=== PATIENT | male | born 1940 | race Caucasian/White ===

== ENCOUNTER → 2016-08-09 | Outpatient (CLI) | payer MEDICARE, BC ==
--- NOTE | 2016-08-09 09:40 | CT ---
EXAMINATION TYPE: CT ankle RT wo con, CT foot RT wo con DATE OF EXAM: 08/09/2016 8:32 AM COMPARISON: NONE HISTORY: 76 year-old male evaluate Arthritis TECHNIQUE: Contiguous axial scanning of the right ankle and foot without IV contrast. Coronal and sag ittal reconstructions performed. 3-D reconstructions generated on a dedicated independent workstation . CT DLP: 297 Rt foot and ankle mGycm Automated exposure control for dose reduction was used. FINDINGS: Ankle: There is eccentric widening of the right tibiotalar joint with an interposed 4.7 mm loose body at the lateral margin of the talar dome. Additional tiny 4 mm loose body just posteriorly. There is joint space narrowing along the medial aspect of the tibiotalar joint with underlying subcho ndral sclerosis. Both anterior and posterior marginal spurring is present at the tibiotalar joint. There appears to be lateral sided extra-articular degenerative change of the hindfoot at the level of the calcaneal angle and lateral talus. There is irregularity of the cortical bone and prominent subc ortical cystic change involving both the talus and calcaneus here. No significant hindfoot valgus. There is subchondral cystic change on the calcaneal side of the anterior subtalar joint There is a 1.1 cm corticated bone fragment at the calcaneal attachment of the CFL suggesting remote a vulsion fracture. Bony spurring along the course of the peroneal tendon which can be seen with posterior tibial tendon dysfunction. Incidental type I assess for navicular. Right foot: There is dorsal plate and 2 screw fixation along the proximal aspect of the first metatarsal. The dis jhonatan fixation screw is intact. The proximal fixation screw is fractured, offset, and is seen extending into the inferior aspect of the first TMT joint. Degenerative joint space narrowing and subchondral cystic change seen at both navicular cuneiform suri nts, and scattered throughout the TMT joints especially the second and fourth TMT joints. There is slight offset along the medial margin of the second TMT joint, refer to series 23, images 27 and 28. Soft tissue thickening along the malleolar and inframalleolar peroneal tendons is noted. Mild degenerative changes at the first TMT joint. Incidental Diaz's toe. IMPRESSION: 1. TIBIOTALAR JOINT OSTEOARTHROSIS WITH PROMINENT ECCENTRIC WIDENING OF THE LATERAL JOINT SPACE. THI S APPEARS TO BE IN PART DUE TO AN INTERPOSED 5 MM LOOSE BODY. ADDITIONAL TINY 4 MM LOOSE BODY JUST PO STERIORLY. 2. OSTEOARTHRITIC CHANGES ALONG THE ANTERIOR SUBTALAR JOINT. ADDITIONAL EXTRA-ARTICULAR HINDFOOT DEGE NERATIVE CHANGE LATERALLY AT THE CALCANEAL ANGLE AND LATERAL TALUS. DEGENERATIVE CHANGES HERE ARE TYP ICALLY SEEN WITH LATERAL HINDFOOT IMPINGEMENT BUT THERE IS NO HINDFOOT VALGUS NOTED. 3. SCATTERED OSTEOARTHRITIC CHANGES AT THE TMT JOINTS. WE NOTE A FRACTURE OF THE PROXIMAL FIXATION SC REW AT THE FIRST METATARSAL. THE FRACTURED DISTAL ASPECT IS OFFSET AND ANGULATED WITH TIP PROJECTING INTO THE FIRST TMT JOINT. 4. THERE IS ADDITIONAL SLIGHT OFFSET ALONG THE MEDIAL MARGIN OF THE SECOND TMT JOINT. QUERY ANY PRIOR HISTORY OF A LISFRANC LIGAMENT INJURY. 5. PROMINENT SOFT TISSUE THICKENING ALONG THE MALLEOLAR AND INFRAMALLEOLAR PERONEAL TENDONS PROBABLY REPRESENTING TENOSYNOVITIS AND TENDINOPATHY. 6. SOME BONY CHANGES ALONG THE COURSE OF THE POSTERIOR TIBIAL TENDON CAN BE SEEN WITH PTT DYSFUNCTION . 7. OLD AVULSION FRACTURE AT THE CALCANEAL CFL ATTACHMENT.
== END | disposition home or self-care (01) ==
LOC: RADCTMAIN 07:22
PROVIDERS: ATTEND Orthopaedic Surgery Foot and Ankle Surgery
DX: M19.071 Primary osteoarthritis, right ankle and foot (principal); S92.311A Displaced fracture of first metatarsal bone, right foot, initial encounter for closed fracture; M24.071 Loose body in right ankle

== ENCOUNTER → 2016-11-28 | Outpatient (CLI) | payer MEDICARE, BC ==
--- NOTE | 2016-11-28 16:54 | XR ---
EXAMINATION TYPE: XR ribs RT DATE OF EXAM: 11/28/2016 COMPARISON: NONE HISTORY: Rib pain TECHNIQUE: 4 views FINDINGS: I see no pleural effusion or pneumothorax. Right lung is clear of infiltrate. I see no rib fracture. IMPRESSION: Negative right rib exam.
--- NOTE | 2016-11-28 16:56 | US ---
EXAMINATION TYPE: US abdomen complete DATE OF EXAM: 11/28/2016 COMPARISON: 2012 CLINICAL HISTORY: R10.10 UPPER ABD PAIN. Large body habitus pt ate at 800 NPO 8 hrs per order from prostate cancer EXAM MEASUREMENTS: Liver Length: 14.2 cm Gallbladder Wall: 0.1 cm CBD: 0.2 cm Spleen: 13.8 cm Right Kidney: 9.8 x 4.7 x 4.0 cm Left Kidney: 10.3 x 4.3 x 4.7 cm Pancreas: Obscured by bowel gas Liver: wnl Gallbladder: wnl Evidence for sonographic Torres's sign: No CBD: wnl Spleen: Spleen Length = < 13cm, enlarged Right Kidney: limited eval pt body habitus small cyst 0.8 x 0.8 x 0.9 cm Left Kidney: wnl limited eval Upper IVC: wnl Abd Aorta: wnl IMPRESSION: Negative complete abdominal sonogram. No gallstones or dilated ducts. No hydronephrosis. Small cyst is noted in the right kidney.
--- NOTE | 2016-11-28 16:57 | XR ---
EXAMINATION TYPE: XR chest 2V DATE OF EXAM: 11/28/2016 COMPARISON: 01/18/2013 HISTORY: TECHNIQUE: Frontal and lateral views of the chest are obtained. FINDINGS: There is no heart failure nor confluent pneumonic infiltrate. Costophrenic angles are swapnil r. There are no hilar masses. There is no sign of pleural effusion. Bony thorax is intact. There are pins in the right shoulder. IMPRESSION: No active cardiopulmonary disease. No pneumothorax. No change compared to old exam.
== END ==
LOC: RADUSWWP 15:58
PROVIDERS: ATTEND Family Medicine
DX: R10.10 Upper abdominal pain, unspecified (principal); S38.1XXA Crushing injury of abdomen, lower back, and pelvis, initial encounter
CPT/HCPCS: 71020; 76700

== ENCOUNTER → 2017-01-07 | Outpatient (CLI) | payer MEDICARE, BC | END | disposition home or self-care (01) | LOC: RADUSWWP 08:42 | PROVIDERS: ATTEND Family Medicine | DX: I73.9 Peripheral vascular disease, unspecified (principal) | CPT/HCPCS: 93923 ==

== ENCOUNTER → 2017-11-21 | Outpatient (CLI) | payer MEDICARE ==
--- NOTE | 2017-11-22 08:33 | ECHOF ---
Referral Reason:R01.1 Cardiac murmur MEASUREMENTS -------- HEIGHT: 170.2 cm WEIGHT: 93.0 kg BP: RVIDd: 3.0 cm (< 3.3) IVSd: 1.3 cm (0.6 - 1.1) LVIDd: 3.6 cm (3.9 - 5.3) LVPWd: 1.3 cm (0.6 - 1.1) IVSs: 1.6 cm LVIDs: 2.6 cm LVPWs: 1.6 cm LA Diam: 3.4 cm (2.7 - 3.8) Ao Diam: 3.9 cm (2.0 - 3.7) AV Cusp: 1.4 cm (1.5 - 2.6) LA Diam: 3.6 cm (2.7 - 3.8) MV EXCURSION: 13.189 mm (> 18.000) MV EF SLOPE: 43 mm/s (70 - 150) EPSS: 1.0 cm MV E Sahde: 0.50 m/s MV DecT: 299 ms MV A Shade: 1.02 m/s MV E/A Ratio: 0.49 AV maxP.65 mmHg AV meanP.38 mmHg AR PHT: 429 ms RAP: 5.00 mmHg RVSP: 24.35 mmHg FINDINGS -------- Sinus rhythm. This was a technically adequate study. The left ventricular size is normal. There is mild concentric left ventricular hypertrophy. Overa ll left ventricular systolic function is low-normal with, an EF between 50 - 55 %. The right ventricle is normal in size. The left atrial size is normal. The right atrial size is normal. There is mild aortic regurgitation. There is moderate aortic stenosis present. Peak/mean gradient across the Aortic Valve is 37.65mmHg / 22.38mmHg. Mild mitral annular calcification present. Mild mitral regurgitation is present. Mild tricuspid regurgitation present. There is mild pulmonary hypertension. The right ventricular systolic pressure, as measured by Doppler, is 24.35mmHg. There is no pulmonic regurgitation present. Aortic Root is dilated and measures 4.0cm. Ascending Aortic Root is dilated and measures 4.7cm. There is no pericardial effusion. CONCLUSIONS -------- 1. The left ventricular size is normal. 2. There is mild concentric left ventricular hypertrophy. 3. Overall left ventricular systolic function is low-normal with, an EF between 50 - 55 %. 4. The right ventricle is normal in size. 5. The left atrial size is normal. 6. The right atrial size is normal. 7. There is mild aortic regurgitation. 8. There is moderate aortic stenosis present. 9. Peak/mean gradient across the Aortic Valve is 37.65mmHg / 22.38mmHg. 10. Mild mitral annular calcification present. 11. Mild mitral regurgitation is present. 12. Mild tricuspid regurgitation present. 13. There is mild pulmonary hypertension. 14. The right ventricular systolic pressure, as measured by Doppler, is 24.35mmHg. 15. There is no pulmonic regurgitation present. 16. Aortic Root is dilated and measures 4.0cm. Ascending Aortic Root is dilated and measures 4.7cm. 17. There is no pericardial effusion. COAL DUMPING EQUIPMENT OPERATOR: Carrie Guzman RDCS
== END | disposition home or self-care (01) ==
LOC: RADECHMAIN 15:32
PROVIDERS: ATTEND Family Medicine
DX: I08.3 Combined rheumatic disorders of mitral, aortic and tricuspid valves (principal); I27.20 Pulmonary hypertension, unspecified; I77.810 Thoracic aortic ectasia
CPT/HCPCS: 93306

== ENCOUNTER → 2017-11-21 | Outpatient (CLI) | payer MEDICARE ==
--- NOTE | 2017-11-21 17:30 | US ---
EXAMINATION TYPE: US carotid duplex BILAT DATE OF EXAM: 11/21/2017 COMPARISON: NONE CLINICAL HISTORY: Carotid Bruit R01.1. Patient states routine to have it done. No HTN. No dizziness or memory loss. EXAM MEASUREMENTS: RIGHT: Peak Systolic Velocity (PSV) cm/sec ----- Right CCA: 73.5 ----- Right ICA: 90.3 ----- Right ECA: 109.7 ICA/CCA ratio: 1.2 RIGHT: End Diastole cm/sec ----- Right CCA: 16.4 ----- Right ICA: 24.1 ----- Right ECA: 0.0 LEFT: Peak Systolic Velocity (PSV) cm/sec ----- Left CCA: 60.7 ----- Left ICA: 73.5 ----- Left ECA: 114.5 ICA/CCA ratio: 1.2 LEFT: End Diastole cm/sec ----- Left CCA: 11.9 ----- Left ICA: 21.9 ----- Left ECA: 0.0 VERTEBRALS (direction of flow): Right Vertebral: Antegrade Left Vertebral: Antegrade Rhythm: Normal Bilateral wall thickening. No elevated velocities or significant stenosis. Plaque seen in left bulb . IMPRESSION: There is antegrade flow in the vertebral arteries. The images and measurements suggest l ess than 25% stenosis in both internal carotid arteries. Criteria for Assigning % of Stenosis / Diameter reduction (Estimation based on the indirect measurements of the internal carotid artery velocities (ICA PSV). 1. Normal (no stenosis)=ICA PSV < 125 cm/s: ratio < 2.0: ICA EDV<40 cm/s. 2. Less than 50% stenosis=ICA PSV < 125 cm/s: ratio < 2.0: ICA EDV<40 cm/s. 3. 50 to 69% stenosis=ICA PSV of 125 to 230 cm/s: ration 2.0 ? 4.0: ICA EDV 40-100 cm/s. 4. Greater than 70% stenosis to near occlusion= ICA PSV > 230 cm/s: ratio > 4.0: ICA EDV > 100 cm/s. 5. Near occlusion= ICA PSV velocities may be low or undetectable: variable ratio and ICA EDV. 6. Total occlusion=unable to detect flow.
== END | disposition home or self-care (01) ==
LOC: RADUSMAIN 15:38
PROVIDERS: ATTEND Internal Medicine Endocrinology, Diabetes & Metabolism
DX: R09.89 Other specified symptoms and signs involving the circulatory and respiratory systems (principal); R01.1 Cardiac murmur, unspecified
CPT/HCPCS: 93880

== ENCOUNTER → 2018-01-29 | Outpatient (CLI) | payer MEDICARE ==
[2018-01-29 15:27] LABS: HCT 39.8 % (39.0-53.0); HGB 12.7 gm/dL (13.0-17.5); MCH 28.4 pg (25.0-35.0); MCHC 31.8 g/dL (31.0-37.0); MCV 89.3 fL (80.0-100.0); Mean Platelet Volume 7.1; Platelet Count 261 k/uL (150-450); RBC 4.45 m/uL (4.30-5.90); RDW 14.9 % (11.5-15.5)
[2018-01-29 15:33] LABS: Calcium 9.7 mg/dL (8.4-10.2); Potassium 4.1 mmol/L (3.5-5.1); Total Bilirubin 1.2 mg/dL (0.2-1.3); Total Protein 6.3 g/dL (6.3-8.2)
[2018-01-29 15:49] LABS: T4, Free (Free Thyroxine) 1.16 ng/dL (0.78-2.19)
[2018-01-29 15:54] LABS: Lymphocytes # (M) 93.72 k/uL (1.0-4.8); Neutrophils # (M) 5.98 k/uL (1.3-7.7); Neutrophils % (M) 6 %; Nucleated Red Blood Cells 0 /100 WBC (0-0); Total Cells Counted 200
[2018-01-29 15:57] LABS: WBC 99.7 k/uL (3.8-10.6)
[2018-01-29 16:17] LABS: Erythrocyte Sedimentation Rate 2 mm/hr (0-15)
== END | disposition home or self-care (01) ==
LOC: LABWHC1 15:05
PROVIDERS: ATTEND Internal Medicine
DX: R06.00 Dyspnea, unspecified (principal)
CPT/HCPCS: 36415; 80053; 84439; 84443; 85025; 85379; 85652

== ENCOUNTER → 2018-05-11 | Outpatient (CLI) | payer MEDICARE ==
--- NOTE | 2018-05-11 08:44 | US ---
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 CLL, Hx enlarged spleen EXAM MEASUREMENTS: Liver Length: 16.6 cm Gallbladder Wall: 0.3 cm CHD: 0.5 cm Spleen: 19.3 cm Right Kidney: 11.0 x 4.9 x 5.1 cm Left Kidney: 11.3 x 4.7 x 5.2 cm Limited exam due to overlying bowel gas Pancreas: Body and tail obscured by overlying bowel gas. Appears echogenic in appearance Liver: wnl Gallbladder: Mobile echogenic nonshadowing foci seen Evidence for sonographic Torres's sign: neg CBD: Obscured by overlying bowel gas CHD: wnl Spleen: enlarged in size Right Kidney: wnl, limited visualization due to patient body habitus, previous cystic lesion not see n on today's exam Left Kidney: wnl Upper IVC: wnl Abd Aorta: Portions obscured by overlying bowel gas. Parts seen appear wnl The liver is homogenous. The intrahepatic portion of the IVC and proximal abdominal aorta are within normal limits. Common bile duct is unremarkable. The visualized portions of the pancreas are homog enous. Kidneys are symmetric and free of hydronephrosis. No renal lesions are seen. IMPRESSION: 1. Cholelithiasis with mild gallbladder wall thickening. 2. Splenomegaly.
[2018-05-11 08:46] LABS: Anisocytosis Slight; HCT 34.5 % (39.0-53.0); HGB 10.7 gm/dL (13.0-17.5); MCH 27.7 pg (25.0-35.0); MCV 89.3 fL (80.0-100.0); Mean Platelet Volume 6.6; Platelet Count 242 k/uL (150-450); RBC 3.86 m/uL (4.30-5.90); RDW 17.5 % (11.5-15.5)
[2018-05-11 08:48] LABS: WBC 158.5 k/uL (3.8-10.6)
[2018-05-11 14:23] LABS: Lymphocytes # (M) 156.92 k/uL (1.0-4.8); Neutrophils # (M) 1.59 k/uL (1.3-7.7); Neutrophils % (M) 1 %
[2018-05-11 14:25] LABS: Monocytes # (M) 1.59 k/uL (0-1.0); Nucleated Red Blood Cells 0 /100 WBC (0-0); Total Cells Counted 200
== END ==
LOC: RADUSWWP 07:36
PROVIDERS: ATTEND Internal Medicine Hematology & Oncology
DX: K80.20 Calculus of gallbladder without cholecystitis without obstruction (principal); R16.1 Splenomegaly, not elsewhere classified; C91.90 Lymphoid leukemia, unspecified not having achieved remission
CPT/HCPCS: 36415; 76700; 85025

== ENCOUNTER → 2018-06-01 | Outpatient (CLI) | payer MEDICARE ==
[2018-06-01 14:14] LABS: Anisocytosis Slight; HCT 33.8 % (39.0-53.0); HGB 10.8 gm/dL (13.0-17.5); Hypochromasia Slight; MCH 28.7 pg (25.0-35.0); MCV 89.5 fL (80.0-100.0); Mean Platelet Volume 6.5; Platelet Count 265 k/uL (150-450); RBC 3.78 m/uL (4.30-5.90); RDW 16.7 % (11.5-15.5)
[2018-06-01 14:20] LABS: WBC 196.9 k/uL (3.8-10.6)
[2018-06-01 14:26] LABS: Albumin 4.2 g/dL (3.5-5.0); Calcium 9.3 mg/dL (8.4-10.2); Potassium 4.6 mmol/L (3.5-5.1); Total Bilirubin 1.1 mg/dL (0.2-1.3); Total Protein 6.3 g/dL (6.3-8.2)
--- NOTE | 2018-06-02 07:43 | CT ---
EXAMINATION TYPE: CT ChestAbdPelvis w con DATE OF EXAM: 06/01/2018 INDICATION: Lymphoid leukemia. COMPARISON: 11/17/2013 CT DLP: 1649.9 mGycm CONTRAST: Performed with Oral Contrast and with IV Contrast, patient injected with 100ml mL of Isovue 300. TECHNIQUE: Axial images at 5 mm thick sections. Reconstructed images in the coronal plane. Delayed images through the kidneys. FINDINGS: CT CHEST: Portion of the thyroid visualized is normal. There is a 0.4 cm nodule within the periphery of the right middle lobe. Series 4 image 25. Nodule wit hin the major fissure on the right has enlarged from 0.4 to 0.6 cm. Series 4 image 29. This could be a lymph node. Consider PET CT for additional evaluation. No suspicious consolidations are evident. There is an enlarged pretracheal lymph node measuring 1.6 cm. Additional shotty lymphadenopathy is in the pretracheal space. There multiple enlarged lymph nodes within the left axillary region. The largest measures 2.1 cm taylor sverse dimension. There are additional shotty lymph nodes within the right axillary region. The ascending aorta diameter at the level of the main pulmonary artery is 4.9 cm. The main pulmonary artery diameter at the bifurcation is 3.[address] ABDOMEN: Liver: Normal Spleen: Marked splenomegaly is present. This measures 17 cm in craniocaudal dimension. Just below the tip of the spleen is a circumscribed rounded density. This has the appearance of a foreign body and is most likely the reservoir from penile prosthesis. Correlate with the patient's history. Pancreas: Normal Adrenal glands: The adrenal glands are normal. Gallbladder: Cholelithiasis is present. Kidneys: No masses are evident. No hydronephrosis is present. No cysts are present. Delayed images were obtained through the kidneys, which remain unremarkable. Aorta: Vascular calcification is within the aorta. Inferior vena cava: Normal. CT PELVIS: There is limitation in the lower pelvis due to beam hardening artifact from right hip pros thesis. Loops of bowel within the abdomen and pelvis are normal. There are loops of bowel which are incom pletely distended or lack oral contrast limiting their evaluation. Few diverticuli may be within the sigmoid colon. Appendix: Not identified. No suspicious tubular structure inflammatory changes evident. Urinary bladder: Decompressed with limited evaluation. Genitourinary structures: Prostate is not identified. Osseous structures: No suspicious lytic or sclerotic lesions. Degenerative disc changes and facet viktoria nges are within the scoliotic lumbar spine. IMPRESSIONS: 1. Ascending thoracic aortic aneurysm measuring 4.9 cm AP dimension. 2. Axillary mediastinal enlarged adenopathy. Shotty lymphadenopathy is within the periaortic region. 3. Cholelithiasis 4. Marked splenomegaly. 5. Small peripheral nodule within the right middle lobe. Follow-up CT chest in 6 months is recommende d. 6. A 0.6 cm enlarging nodule within the major fissure on the right with an additional right middle lo be nodule. Follow up CT chest in 6 months is recommended. PET/CT could be considered
== END | disposition home or self-care (01) ==
LOC: RADCTMAIN 13:42
PROVIDERS: ATTEND Internal Medicine Hematology & Oncology
DX: C91.90 Lymphoid leukemia, unspecified not having achieved remission (principal); I71.2 Thoracic aortic aneurysm, without rupture; K80.20 Calculus of gallbladder without cholecystitis without obstruction; R91.1 Solitary pulmonary nodule; R16.1 Splenomegaly, not elsewhere classified; R59.0 Localized enlarged lymph nodes
CPT/HCPCS: 80053; 85027; 71260; 74177; 36415; Q9967

== ENCOUNTER → 2019-10-12 | Outpatient (CLI) | payer MEDICARE ==
--- NOTE | 2019-10-12 17:02 | XR ---
Right RIBS with PA chest x-ray HISTORY: Trauma and pain 4 views of the right RIBS and frontal view of the chest submitted, exam correlated to prior right rib s 11/28/2016 Right sixth rib shows a minimally displaced fracture laterally. There is some local pleural thickenin g. There is eventration right hemidiaphragm, elevation as noted on prior exam. Postop changes noted w ithin the right shoulder as on prior. No pneumothorax or pleural effusion. Scoliotic curvature is not ed within the thoracic lumbar spine, associated degenerative disc change. Aorta is dense. IMPRESSION: Right sixth rib fracture
== END | disposition home or self-care (01) ==
LOC: RADXRYALE 14:35
PROVIDERS: ATTEND Family Medicine
DX: S22.31XA Fracture of one rib, right side, initial encounter for closed fracture (principal); R07.81 Pleurodynia

== ENCOUNTER 2020-12-14 14:38 | Emergency (ER) | payer MEDICARE ==
[2020-12-14] MEDS ORDERED: PROPARACAINE 0.5% OPHTH DROPS 15 ML BTL BOTH EYES STA (16:00)
[2020-12-14] MEDS ORDERED: MORPHINE SULFATE 4 MG/ML SYRINGE IV STA (16:36)
--- NOTE | 2020-12-14 16:53 | ED ---
General Adult HPI - General Chief complaint: Eye Problems Stated complaint: Eye Pain Time Seen by Provider: 12/14/20 16:00 Source: patient Mode of arrival: ambulatory Limitations: no limitations - History of Present Illness Initial comments: Dictation was produced using [employer] dictation software. please excuse any grammatical, word or spelling errors. Chief Complaint: 80-year-old male presents emergency department for cough and shortness of breath History of Present Illness: This 72-year-old male presents to emergency department for cough. He states he's had a cough for the last couple days. Patient recently diagnosed with what he was told was herpes zoster of the right forehead. He went to contact lens flashing puncher recently with Jorge A in extensive ocular exam with no acute findings. Prescribed antivirals. Patient states that he also has been having acute onset of shortness of breath and cough with productive sputum. Denies any constitutional symptoms however does report having had low-grade fever. Denies any nausea. No vomiting. He is on antivirals. States that he has pain prescription at home that hasn't been helping with his facial pain. He has a history of chronic myelogenous leukemia. The ROS documented in this emergency department record has been reviewed and confirmed by me. Those systems with pertinent positive or negative responses have been documented in the HPI. All other systems are other negative and/or noncontributory. PHYSICAL EXAM: General Impression: Alert and oriented x3, not in acute distress HEENT: Normocephalic atraumatic, extra-ocular movements intact, pupils equal and reactive to light bilaterally, mucous membranes moist, right eye conjunctivitis Cardiovascular: Heart regular rate and rhythm Chest: Able to complete full sentences, no retractions, no tachypnea Abdomen: abdomen soft, non-tender, non-distended, no organomegaly Musculoskeletal: Pulses present and equal in all extremities, no peripheral edema Motor: no focal deficits noted Neurological: CN II-XII grossly intact, no focal motor or sensory deficits noted Skin: Intact with no visualized rashes Psych: Normal affect and mood ED course: 80-year-old male presents to the emergency department for cough. He was recently diagnosed with potential herpes zoster to the face. Vital signs upon arrival shows temperature 90.1, worse vital signs within acceptable limits. Laboratory evaluation obtained. Leukocytosis any 77.1. Patient's history of elevated leukocytosis as high as 88. He is aware of this. Metabolic panel is unremarkable. Coag test is negative. Chest x-ray shows no acute radiographic process. Clinical presentation consistent with upper respiratory infection. Patient observed in emergency department for approximately 4 hours. He is reevaluated at bedside at 7 PM found to be stable medical condition. Patient sees specialist for his leukemia and for the ongoing issues on his face. Seems to be on appropriate medications and has appropriate Follow-up. Patient agreeable to discharge. - Related Data Home Medications Medication Instructions Recorded Confirmed RX: Gabapentin 600 mg PO TID 08/12/17 12/14/20 oxyCODONE-APAP 7.5-325MG [Percocet 7.5 mg PO QID 08/12/17 12/14/20 7.5-325 mg] Clopidogrel Bisulfate [Plavix] 75 mg PO DAILY 12/14/20 12/14/20 Empagliflozin [Jardiance] 25 mg PO DAILY 12/14/20 12/14/20 Fexofenadine HCl [Josefina Allergy] 180 mg PO DAILY 12/14/20 12/14/20 Insulin Glargine,Hum.rec.anlog 40 units SQ DAILY 12/14/20 12/14/20 [Toujeo Max Solostar] Insulin Lispro [humaLOG Kwikpen] 5 unit SQ AC-TID 12/14/20 12/14/20 Metoprolol Succinate [Toprol XL] 50 mg PO DAILY 12/14/20 12/14/20 Omeprazole [PriLOSEC] 20 mg PO DAILY 12/14/20 12/14/20 Ondansetron [Zuplenz] 4 mg PO TID PRN 12/14/20 12/14/20 Pioglitazone [Actos] 30 mg PO DAILY 12/14/20 12/14/20 Pravastatin Sodium [Pravachol] 40 mg PO HS 12/14/20 12/14/20 metFORMIN HCL [Glucophage] 1,000 mg PO BID 12/14/20 12/14/20 rOPINIRole HCL [Requip] 5 mg PO HS 12/14/20 12/14/20 valACYclovir HCL [Valtrex] 1,000 mg PO TID 12/14/20 12/14/20 Allergies Allergy/AdvReac Type Severity Reaction Status Date / Time cephalexin [From Keflex] Allergy Severe Anaphylaxis Verified 12/14/20 16:55 ciprofloxacin [From Cipro] Allergy Severe Anaphylaxis Verified 12/14/20 16:55 duloxetine [From Cymbalta] Allergy Severe Chest Pain Verified 12/14/20 16:55 Penicillins Allergy Mild Rash/Hives Verified 12/14/20 16:55 sulfamethoxazole AdvReac Mild Nausea & Verified 12/14/20 16:55 [From Bactrim] Vomiting trimethoprim [From Bactrim] AdvReac Mild Nausea & Verified 12/14/20 16:55 Vomiting Review of Systems ROS Statement: Those systems with pertinent positive or pertinent negative responses have been documented in the HPI. ROS Other: All systems not noted in ROS Statement are negative. Past Medical History Past Medical History: Cancer, Diabetes Mellitus, Eye Disorder, Hypertension, Osteoarthritis (OA), Prostate Disorder Additional Past Medical History / Comment(s): LEUKEMIA, CHRONIC BACK PAIN, BACK STENOSIS History of Any Multi-Drug Resistant Organisms: None Reported Past Surgical History: Hernia Repair, Joint Replacement, Prostate Surgery, Tonsillectomy Additional Past Surgical History / Comment(s): SKIN BIOPSY RLE, L KNEE REPLACEMENT 2014, RT HIP REPLACEMENT 2013, 2005 L ROTATOR CUFF SURGERY, 2003 RT SHOULDER SURGERY, 1998 RT CARPAL TUNNEL, 1999 LT CARPAL TUNNEL AND ULNA SURGERY. 1995 RT INGUINAL REPAIR, 1994 PENAL IMPLANT, 1993 PROSTATE SURGERY, 1982 CRUSH INJURY L THUMB AND FOREFINGER, 1964 TONSILLECTOMY, 1956 RT ANKLE REPAIR FROM TRUAMA, ACHILLES TENDON RELEASE Past Anesthesia/Blood Transfusion Reactions: No Reported Reaction Past Psychological History: No Psychological Hx Reported Past Drug Use History: None Reported - Past Family History Father Family Medical History: COPD, Myocardial Infarction (NH) General Exam Limitations: no limitations Course Vital Signs 12/14/20 15:52 Temperature 99.1 F Pulse Rate 80 Respiratory 18 Rate Blood Pressure 145/84 O2 Sat by Pulse 100 Oximetry Medical Decision Making - Lab Data Result diagrams: 12/14/20 16:49 12/14/20 16:49 Lab Results 12/14/20 12/14/20 12/14/20 Range/Units 16:49 16:49 16:49 WBC 77.1 H* (3.8-10.6) k/uL RBC 4.79 (4.30-5.90) m/uL Hgb 13.4 (13.0-17.5) gm/dL Hct 41.1 (39.0-53.0) % MCV 85.8 (80.0-100.0) fL MCH 28.0 (25.0-35.0) pg MCHC 32.6 (31.0-37.0) g/dL RDW 16.1 H (11.5-15.5) % Plt Count 292 (150-450) k/uL MPV 7.1 Neutrophils % (Manual) 12 % Lymphocytes % (Manual) 76 % Monocytes % (Manual) 12 % Neutrophils # (Manual) 9.25 H (1.3-7.7) k/uL Lymphocytes # (Manual) 58.60 H (1.0-4.8) k/uL Monocytes # (Manual) 9.25 H (0-1.0) k/uL Nucleated RBCs 0 (0-0) /100 WBC Manual Slide Review Performed RBC Morphology Anisocytosis Slight Sodium 136 L (137-145) mmol/L Potassium 4.2 (3.5-5.1) mmol/L Chloride 104 (98-107) mmol/L Carbon Dioxide 23 (22-30) mmol/L Anion Gap 9 mmol/L BUN 17 (9-20) mg/dL Creatinine 1.12 (0.66-1.25) mg/dL Est GFR (CKD-EPI)AfAm 73 (>60 ml/min/1.73 sqM) Est GFR (CKD-EPI)NonAf 63 (>60 ml/min/1.73 sqM) Glucose 160 H (74-99) mg/dL Calcium 9.1 (8.4-10.2) mg/dL Coronavirus (PCR) Not Detected (Not Detectd) Disposition Clinical Impression: Cough Disposition: HOME SELF-CARE Condition: Good Instructions (If sedation given, give patient instructions): Acute Cough (ED) Is patient prescribed a controlled substance at d/c from ED?: No Referrals: Amelia Broussard DO [Primary Care Provider] - 1-2 days
[2020-12-14 16:59] LABS: Anisocytosis Slight; HCT 41.1 % (39.0-53.0); HGB 13.4 gm/dL (13.0-17.5); MCHC 32.6 g/dL (31.0-37.0); MCV 85.8 fL (80.0-100.0); Mean Platelet Volume 7.1; Platelet Count 292 k/uL (150-450); RBC 4.79 m/uL (4.30-5.90); RDW 16.1 % (11.5-15.5)
[2020-12-14 17:08] LABS: Calcium 9.1 mg/dL (8.4-10.2); Potassium 4.2 mmol/L (3.5-5.1); WBC 77.1 k/uL (3.8-10.6)
[2020-12-14 17:31] LABS: Monocytes # (M) 9.25 k/uL (0-1.0); Neutrophils # (M) 9.25 k/uL (1.3-7.7); Neutrophils % (M) 12 %; Nucleated Red Blood Cells 0 /100 WBC (0-0); Total Cells Counted 100
--- NOTE | 2020-12-14 18:17 | XR ---
EXAMINATION: XR chest 2V DATE AND TIME: 12/14/2020 5:19 PM CLINICAL INDICATION: PHH; cough TECHNIQUE: Departmental protocol COMPARISON: 10/12/2019 FINDINGS: The lungs are clear. The pleural spaces are negative. The cardiac silhouette is not enlarged. The remainder of the mediastinal silhouette is unremarkable. The skeletal structures and soft tissues are negative for acute findings. The previously noted right anterolateral sixth rib fracture is redemonstrated. IMPRESSION: No acute radiographic process.
[2020-12-14 19:26] VITALS: BP 138/74; PULSE 78; RESP 16; TEMP 98.2
== END 2020-12-14 19:25 | disposition home or self-care (01) ==
LOC: EC 14:38
DX: R05 Cough (principal); H10.9 Unspecified conjunctivitis; E11.9 Type 2 diabetes mellitus without complications; I10 Essential (primary) hypertension; M19.90 Unspecified osteoarthritis, unspecified site; Z79.4 Long term (current) use of insulin; Z79.899 Other long term (current) drug therapy; Z88.0 Allergy status to penicillin; Z88.1 Allergy status to other antibiotic agents; Z88.2 Allergy status to sulfonamides; Z88.8 Allergy status to other drugs, medicaments and biological substances; Z82.49 Family history of ischemic heart disease and other diseases of the circulatory system
CPT/HCPCS: 36415; 80048; 85025; 87635; 71046; 96374; 99285; J2270

== ENCOUNTER → 2021-11-07 | Outpatient (CLI) | payer MEDICARE ==
--- NOTE | 2021-11-08 10:05 | US ---
EXAMINATION TYPE: US groin RT DATE OF EXAM: 11/07/2021 COMPARISON: Prior CT from 06/01/2018 CLINICAL HISTORY: 81-year-old male K40.90 UNIL INGUINAL HERNIA. Hernia. Swelling x 2 weeks. Pain. TECHNIQUE: Painter Decorator notes: Scanned right groin at patient's area of concern. Imaging without and w ith Valsalva. FINDINGS: Painter Decorator note: Multiple borderline enlarged lymph nodes seen within the right groin. Largest measu res: 2.2 x 1.2 x 0.9 cm. The gut carrier imaged the right external iliac vein with scanning superior and inferior along the re gion of the inguinal canal both with and without Valsalva maneuver. There is no abnormal anterior mot ion of soft tissue identified by the gut carrier. IMPRESSION: 1. Borderline enlarged right inguinal lymph nodes, largest measuring 1.2 cm short axis. These are pro bably reactive/post inflammatory and can be followed clinically. If persistence or enlargement, the a rhona should be rescanned. 2. Unable to identify an inguinal hernia.
== END | disposition home or self-care (01) ==
LOC: RADUSWWP 15:46
PROVIDERS: ATTEND Family Medicine
DX: K40.90 Unilateral inguinal hernia, without obstruction or gangrene, not specified as recurrent (principal)

== ENCOUNTER → 2023-12-17 | Outpatient (CLI) | payer MEDICARE ==
--- NOTE | 2023-12-17 13:34 | XR ---
EXAMINATION TYPE: XR ribs bilat w pa chest xray DATE OF EXAM: 12/17/2023 COMPARISON: NONE HISTORY: Pain TECHNIQUE: PA view of the chest and 4 views of the bilateral ribs are submitted. FINDINGS: Rather limited inspiration. No sizable pneumothorax. There is no consolidation. Degenerativ e change of the spine with curvature. Atherosclerotic change aorta. Elevated right hemidiaphragm. There is a displaced fracture involving the anterolateral right sixth rib. Surgical clips gallbladder fossa. There is a displaced fracture involving the anterior margin of the left ninth rib. Cannot exclude a h airline fracture of the anterior left eighth rib. Previous surgical change involving the right aryan l head. IMPRESSION: 1. Acute fracture displaced anterolateral right sixth rib. 2. Acute fracture anterolateral left ninth and possibly eighth rib.
== END | disposition home or self-care (01) ==
LOC: RADXRYALE 13:14
PROVIDERS: ATTEND Nurse Practitioner
DX: S22.43XA Multiple fractures of ribs, bilateral, initial encounter for closed fracture (principal)
CPT/HCPCS: 71111

== ENCOUNTER → 2024-01-26 | Outpatient (CLI) | payer MEDICARE ==
--- NOTE | 2024-01-26 11:27 | XR ---
EXAMINATION TYPE: XR ribs bilat w pa chest xray DATE OF EXAM: 01/26/2024 COMPARISON: 12/17/2023 HISTORY: Pain TECHNIQUE: PA view of the chest and AP views of the bilateral ribs submitted. FINDINGS: Post rotator cuff repair surgery. Scoliosis with multilevel degenerative change of the spine. Lungs a re clear. There is no evidence of pneumothorax. No focal pneumonia. Surgical clips in the gallbladder fossa. There is diffuse defect of the anterior margin of the right sixth rib. Defect involving the anterior lateral left eighth and ninth ribs compatible with prior trauma. IMPRESSION: 1. Stable appearing bilateral rib fractures. [facility], , 01/26/2024 11:24 AM
== END | disposition home or self-care (01) ==
LOC: RADXRYALE 11:04
PROVIDERS: ATTEND Nurse Practitioner
CPT/HCPCS: 71111